=== PATIENT | female | born 1935 | race Caucasian/White ===

== ENCOUNTER 2017-08-22 13:36 | Inpatient (IN) | payer MEDICARE ==
[~2017-08-22] VITALS: Ht 170.2 cm; Wt 70.0 kg
[2017-08-22] MEDS ORDERED: normal saline 1000ml 1,000 ML IV ONE (13:48)
[2017-08-22] MEDS ORDERED: pantoprazole 40 MG vial IV ONE (13:50)
[2017-08-22 14:26] LABS: INR 1.1 INR; PARTIAL THROMBOPLASTIN TIME 28 SECONDS (22-32); PROTHROMBIN TIME 11.3 SECONDS (9.0-12.0)
[2017-08-22 14:33] LABS: ALANINE AMINOTRANSFERASE 15 U/L (12-78); ALBUMIN 3.1 G/DL (3.4-5.0); ALBUMIN/GLOBULIN RATIO 0.7 (1.1-1.5); ALKALINE PHOSPHATASE 75 IU/L (46-116); ANION GAP 8 (8-16); ASPARTATE AMINO TRANSFERASE 14 U/L (10-37); BILIRUBIN,TOTAL 0.4 MG/DL (0.1-1.0); BLOOD UREA NITROGEN 18 MG/DL (7-18); BUN/CREATININE RATIO 20.7 (6.6-38.0); CALCIUM 9.8 MG/DL (8.5-10.1); CHLORIDE 106 MMOL/L (99-107); CREATININE 0.87 MG/DL (0.40-0.90); GLUCOSE 103 MG/DL (70-104); LIPASE 126 U/L (73-393); MAGNESIUM 2.1 MG/DL (1.5-2.4); POTASSIUM 3.9 MMOL/L (3.5-5.1); SODIUM 142 MMOL/L (135-145); TOTAL CARBON DIOXIDE 28.4 MMOL/L (24-32); TOTAL PROTEIN 7.8 G/DL (6.4-8.2); eGFR 62 ML/MIN
[2017-08-22 15:25] LABS: BASOPHILS % (AUTO) 0 % (0-1); EOSINOPHILS # (AUTO) 0.1 X10'3 (0-0.9); EOSINOPHILS % (AUTO) 2.5 % (0-6); HEMATOCRIT 26.2 % (35.0-45.0); HEMOGLOBIN 9.1 g/dl (12.0-16.0); LYMPHOCYTES # (AUTO) 1.4 X10'3 (1.1-4.8); LYMPHOCYTES % (AUTO) 38.9 % (21-51); MEAN CORPUSCULAR HEMOGLOBIN 35.4 PG (27.0-31.0); MEAN CORPUSCULAR HGB CONC 34.7 % (33.0-36.5); MEAN CORPUSCULAR VOLUME 102.1 FL (78-98); MONOCYTES # (AUTO) 0.2 X10'3 (0-0.9); MONOCYTES % (AUTO) 6.3 % (2-12); NEUTROPHILS # (AUTO) 1.9 X10'3 (1.8-7.7); NEUTROPHILS % (AUTO) 52.3 % (42-75); RED BLOOD COUNT 2.57 X10'6 (4.20-5.60); RED CELL DISTRIBUTION WIDTH 14.9 % (11.5-14.5); WHITE BLOOD COUNT 3.5 X10'3 (4.5-11.0)
[2017-08-22 15:36] LABS: PLATELET COUNT 16 X10'3 (140-440)
[2017-08-22 17:53] LABS: CLARITY,URINE SLIGHTLY CLOUDY (Clear); COLOR,URINE STRAW (Yellow); GLUCOSE, URINE NEGATIVE (Neg); KETONES,URINE NEGATIVE (Neg); LEUKOCYTE ESTERASE ,URINE TRACE (Neg); NITRITES, URINE NEGATIVE (Neg); OCCULT BLOOD,URINE NEGATIVE (Neg); PH,URINE 7.5 (4.8-8.0); PROTEIN,URINE NEGATIVE (Neg); UROBILINOGEN,URINE 0.2 E.U/dL (0.2-1.0)
[2017-08-22 17:55] LABS: UA COLLECTION TYPE CLN CATCH MIDSTREAM
[2017-08-22 18:05] LABS: BACTERIA,URINE FEW /HPF (Neg); MUCUS STRANDS NONE SEEN /LPF (Neg); SQUAMOUS EPITHELIAL CELL,UR MODERATE /LPF (FEW); TRANSITIONAL EPI CELLS,URINE MODERATE /HPF; WBC,URINE 0-4 /HPF (0-4)
[2017-08-22 18:06] LABS: AMORPHOUS PHOSPHATES 3+
[2017-08-22] MEDS: diatr meglu/diatrizoate 30ml oral sol.-(3 dose) bottle PO SCH ×4 (18:09→19:45)
[2017-08-22] MEDS ORDERED: mag hydrox/Alum hydrox/simeth 30ml oral suspension PO PRN (18:10)
[2017-08-22] MEDS ORDERED: ondansetron/PF 4mg/2ml inj IV PRN (18:10)
[2017-08-22] MEDS ORDERED: acetaminophen 325mg tablet PO PRN (18:10)
[2017-08-22] MEDS ORDERED: magnesium hydroxide 30ml (MOM) UD suspension PO PRN (18:10)
[2017-08-22] MEDS: normal saline 1000ml 1,000 ML IV SCH (18:35)
[2017-08-22] MEDS: amLODIPine 5mg tablet PO SCH (18:35)
[2017-08-22] MEDS ORDERED: AMLO5TAB21 (19:03)
[2017-08-22] MEDS ORDERED: NAPR220C15 PO (19:04)
[2017-08-22 19:25] LABS: % IRON SATURATION 14 % (11-46); IRON 40 UG/DL (49-151); TOTAL IRON BINDING CAPACITY 285 UG/DL (259-388)
[2017-08-22] MEDS ORDERED: iohexol 300mg/ml 100ml inj. ONE (19:33)
[2017-08-22 19:49] LABS: H PYLORI ANTIBODY NEGATIVE (Neg)
[2017-08-23] VITALS (15 sets, daily range): BP systolic 126–199; BP diastolic 55–78
[2017-08-23] MEDS: normal saline 1000ml 1,000 ML IV SCH (00:47)
[2017-08-23 05:21] LABS: HEMATOCRIT 23.4 % (35.0-45.0); HEMOGLOBIN 8.1 g/dl (12.0-16.0); MEAN CORPUSCULAR HEMOGLOBIN 35.2 PG (27.0-31.0); MEAN CORPUSCULAR HGB CONC 34.7 % (33.0-36.5); MEAN CORPUSCULAR VOLUME 101.5 FL (78-98); MEAN PLATELET VOLUME 8.4 FL (7.4-10.4); WHITE BLOOD COUNT 3.3 X10'3 (4.5-11.0)
[2017-08-23 05:24] LABS: PLATELET COUNT 14 X10'3 (140-440)
[2017-08-23 06:23] LABS: ALANINE AMINOTRANSFERASE 19 U/L (12-78); ALBUMIN 2.7 G/DL (3.4-5.0); ALBUMIN/GLOBULIN RATIO 0.7 (1.1-1.5); ALKALINE PHOSPHATASE 65 IU/L (46-116); ASPARTATE AMINO TRANSFERASE 13 U/L (10-37); BILIRUBIN,DIRECT 0.1 MG/DL (0-0.3); BILIRUBIN,TOTAL 0.4 MG/DL (0.1-1.0); LACTATE DEHYDROGENASE 186 U/L (81-234); TOTAL PROTEIN 6.7 G/DL (6.4-8.2)
[2017-08-23 07:03] LABS: EOSINOPHILS % (MANUAL) 1 % (0-6); LYMPHOCYTES % (MANUAL) 44 % (21-51); MONOCYTES % (MANUAL) 4 % (2-12); NEUTROPHILS % (MANUAL) 51 % (42-75); PLATELET ESTIMATE DECREASED; TOTAL CELLS COUNTED 100
[2017-08-23] MEDS: pantoprazole 40mg Tablet.DR PO SCH ×2 (07:30→20:52)
[2017-08-23] MEDS: amLODIPine 5mg tablet PO SCH (08:00)
[2017-08-23] MEDS ORDERED: normal saline 1000ml 1,000 ML IV SCH (13:50)
[2017-08-23] MEDS ORDERED: fentaNYL/PF 50MCG/1 ML 2ML syringe IV PRN (13:50)
[2017-08-23] MEDS ORDERED: MIDAZolam 5mg/ml 2ml vial IV PRN (13:50)
[2017-08-23] MEDS ORDERED: simethicone 40mg/0.6ml oral drops 30ml MC ONE (13:50)
[2017-08-23] MEDS ORDERED: LIDOcaine Viscous 15ml cup PO ONE (13:50)
[2017-08-23] MEDS ORDERED: midazolam 2 mg/2 ml injection ONE (14:51)
[2017-08-23] MEDS ORDERED: fentaNYL/PF 50MCG/1 ML 2ML syringe ONE (14:51)
[2017-08-23] MEDS ORDERED: LIDOcaine Viscous 15ml cup ONE (14:58)
[2017-08-23] MEDS ORDERED: amLODIPine 5mg tablet PO ONE ×2 (19:35)
[2017-08-24] VITALS (13 sets, daily range): BP systolic 118–167; BP diastolic 46–76
[2017-08-24] MEDS: pantoprazole 40mg Tablet.DR PO SCH ×3 (07:30→20:18)
[2017-08-24] MEDS ORDERED: amLODIPine 5mg tablet PO SCH ×2 (08:00→21:00)
[2017-08-24 08:33] LABS: BASOPHILS % (AUTO) 0.4 % (0-1); EOSINOPHILS # (AUTO) 0.1 X10'3 (0-0.9); EOSINOPHILS % (AUTO) 3.4 % (0-6); HEMATOCRIT 23.5 % (35.0-45.0); HEMOGLOBIN 8.1 g/dl (12.0-16.0); LYMPHOCYTES # (AUTO) 1.2 X10'3 (1.1-4.8); LYMPHOCYTES % (AUTO) 45.7 % (21-51); MEAN CORPUSCULAR HEMOGLOBIN 35.3 PG (27.0-31.0); MEAN CORPUSCULAR HGB CONC 34.3 % (33.0-36.5); MEAN CORPUSCULAR VOLUME 102.9 FL (78-98); MEAN PLATELET VOLUME 7.8 FL (7.4-10.4); MONOCYTES # (AUTO) 0.2 X10'3 (0-0.9); MONOCYTES % (AUTO) 6.9 % (2-12); NEUTROPHILS # (AUTO) 1.1 X10'3 (1.8-7.7); NEUTROPHILS % (AUTO) 43.6 % (42-75); RED BLOOD COUNT 2.28 X10'6 (4.20-5.60); RED CELL DISTRIBUTION WIDTH 15.1 % (11.5-14.5); WHITE BLOOD COUNT 2.6 X10'3 (4.5-11.0)
[2017-08-24 08:45] LABS: INR 1.1 INR; PROTHROMBIN TIME 11.4 SECONDS (9.0-12.0)
[2017-08-24 08:54] LABS: PLATELET COUNT 29 X10'3 (140-440)
[2017-08-24 08:59] LABS: TOTAL CELLS COUNTED 100
[2017-08-24 09:00] LABS: PLATELET ESTIMATE DECREASED
[2017-08-24] MEDS: metroNIDAZOLE-Flagyl 500mg/NS 100 ML IV SCH (19:37)
[2017-08-24] MEDS ORDERED: vancomycin/NS 1 GM ADD-VANTAGE 250 ML X 1 DOSE IV ONE (20:00)
[2017-08-24] MEDS: cefepime 1GM/NS ADD-VANTAGE 100 ML IV SCH (20:15)
[2017-08-24] MEDS: amLODIPine 2.5mg tablet PO SCH (20:21)
[2017-08-24] MEDS ORDERED: vancomycin/NS 500MG ADD-VANT 100 ML IV ONE (21:30)
[2017-08-25] VITALS: BP 149/60
[2017-08-25] MEDS: normal saline 1000ml 1,000 ML IV SCH ×2 (00:54→06:09)
[2017-08-25] MEDS: metroNIDAZOLE-Flagyl 500mg/NS 100 ML IV SCH ×2 (00:54→08:00)
[2017-08-25 08:00] VITALS: BP 129/54
[2017-08-25] MEDS: pantoprazole 40mg Tablet.DR PO SCH ×3 (08:56→20:16)
[2017-08-25] MEDS: cefepime 1GM/NS ADD-VANTAGE 100 ML IV SCH ×2 (08:57→20:15)
[2017-08-25] MEDS ORDERED: vancomycin/NS 1 GM ADD-VANTAGE 250 ML IV SCH (10:00)
[2017-08-25 10:56] LABS: CREATININE 0.84 MG/DL (0.40-0.90); eGFR 65 ML/MIN
[2017-08-25 11:00] VITALS: BP_SYST 129; BP_SYST 157; BP_DIAS 54; BP_DIAS 58
[2017-08-25 11:25] VITALS: BP_SYST 129; BP_SYST 132; BP_SYST 137; BP_DIAS 54; BP_DIAS 55
[2017-08-25 12:55] LABS: BASOPHILS % (AUTO) 0.5 % (0-1); EOSINOPHILS # (AUTO) 0.1 X10'3 (0-0.9); EOSINOPHILS % (AUTO) 2.6 % (0-6); HEMATOCRIT 22.3 % (35.0-45.0); HEMOGLOBIN 7.8 g/dl (12.0-16.0); LYMPHOCYTES # (AUTO) 1.3 X10'3 (1.1-4.8); MEAN CORPUSCULAR HEMOGLOBIN 35.5 PG (27.0-31.0); MEAN CORPUSCULAR HGB CONC 35.2 % (33.0-36.5); MEAN PLATELET VOLUME 7.3 FL (7.4-10.4); MONOCYTES # (AUTO) 0.2 X10'3 (0-0.9); MONOCYTES % (AUTO) 6.5 % (2-12); NEUTROPHILS # (AUTO) 1.3 X10'3 (1.8-7.7); NEUTROPHILS % (AUTO) 45.4 % (42-75); PLATELET COUNT 56 X10'3 (140-440); RED BLOOD COUNT 2.21 X10'6 (4.20-5.60); RED CELL DISTRIBUTION WIDTH 15.1 % (11.5-14.5)
[2017-08-25 13:09] LABS: ALANINE AMINOTRANSFERASE 12 U/L (12-78); ALBUMIN 2.6 G/DL (3.4-5.0); ALBUMIN/GLOBULIN RATIO 0.6 (1.1-1.5); ALKALINE PHOSPHATASE 71 IU/L (46-116); ANION GAP 9 (8-16); ASPARTATE AMINO TRANSFERASE 14 U/L (10-37); BILIRUBIN,TOTAL 0.4 MG/DL (0.1-1.0); BLOOD UREA NITROGEN 17 MG/DL (7-18); BUN/CREATININE RATIO 21.3 (6.6-38.0); CALCIUM 9.6 MG/DL (8.5-10.1); CHLORIDE 106 MMOL/L (99-107); GLUCOSE 95 MG/DL (70-104); POTASSIUM 4.1 MMOL/L (3.5-5.1); SODIUM 140 MMOL/L (135-145); TOTAL CARBON DIOXIDE 25.4 MMOL/L (24-32); eGFR 68 ML/MIN
[2017-08-25 15:57] LABS: TOTAL CELLS COUNTED 100
[2017-08-25 15:58] LABS: PLATELET ESTIMATE DECREASED
[2017-08-25] MEDS: metroNIDAZOLE 500mg tablet PO SCH (16:34)
[2017-08-25] MEDS: lactobacillus rhamnosus 10,000 MMU CELLS/CAPSULE PO SCH (17:40)
[2017-08-25 20:00] VITALS: BP_SYST 132; BP_SYST 150; BP_SYST 159; BP_DIAS 60; BP_DIAS 62; BP_DIAS 65
[2017-08-25] MEDS: amLODIPine 2.5mg tablet PO SCH (20:16)
[2017-08-25] MEDS: vancomycin/NS 1 GM ADD-VANTAGE 250 ML IV SCH (22:48)
[2017-08-26] VITALS: BP 119/61
[2017-08-26] MEDS: metroNIDAZOLE 500mg tablet PO SCH ×4 (00:08→23:02)
[2017-08-26] MEDS: normal saline 1000ml 1,000 ML IV SCH ×2 (02:13→22:09)
[2017-08-26 05:33] LABS: HEMATOCRIT 22.7 % (35.0-45.0); HEMOGLOBIN 7.9 g/dl (12.0-16.0); MEAN CORPUSCULAR HEMOGLOBIN 35.6 PG (27.0-31.0); MEAN CORPUSCULAR HGB CONC 34.8 % (33.0-36.5); MEAN CORPUSCULAR VOLUME 102.2 FL (78-98); MEAN PLATELET VOLUME 7.5 FL (7.4-10.4); PLATELET COUNT 51 X10'3 (140-440); RED BLOOD COUNT 2.22 X10'6 (4.20-5.60); RED CELL DISTRIBUTION WIDTH 14.6 % (11.5-14.5); WHITE BLOOD COUNT 2.9 X10'3 (4.5-11.0)
[2017-08-26 06:21] LABS: ALANINE AMINOTRANSFERASE 16 U/L (12-78); ALBUMIN 2.5 G/DL (3.4-5.0); ALBUMIN/GLOBULIN RATIO 0.6 (1.1-1.5); ALKALINE PHOSPHATASE 65 IU/L (46-116); ANION GAP 8 (8-16); ASPARTATE AMINO TRANSFERASE 11 U/L (10-37); BILIRUBIN,TOTAL 0.4 MG/DL (0.1-1.0); BLOOD UREA NITROGEN 19 MG/DL (7-18); BUN/CREATININE RATIO 20.2 (6.6-38.0); CALCIUM 9.5 MG/DL (8.5-10.1); CHLORIDE 109 MMOL/L (99-107); CREATININE 0.94 MG/DL (0.40-0.90); GLUCOSE 105 MG/DL (70-104); POTASSIUM 4.4 MMOL/L (3.5-5.1); SODIUM 142 MMOL/L (135-145); TOTAL CARBON DIOXIDE 24.9 MMOL/L (24-32); TOTAL PROTEIN 6.7 G/DL (6.4-8.2); eGFR 57 ML/MIN
[2017-08-26 06:41] LABS: ANISOCYTOSIS 1+; PLATELET ESTIMATE DECREASED; TOTAL CELLS COUNTED 100
[2017-08-26 08:00] VITALS: BP_SYST 116; BP_SYST 129; BP_SYST 133; BP_DIAS 53; BP_DIAS 56; BP_DIAS 60
[2017-08-26] MEDS: cyanocobalamin 500mcg tablet PO SCH (08:02)
[2017-08-26] MEDS: pantoprazole 40mg Tablet.DR PO SCH ×2 (08:02→22:05)
[2017-08-26] MEDS: lactobacillus rhamnosus 10,000 MMU CELLS/CAPSULE PO SCH ×2 (08:02→20:00)
[2017-08-26] MEDS: cefepime 1GM/NS ADD-VANTAGE 100 ML IV SCH ×2 (08:03→22:06)
[2017-08-26 11:00] VITALS: BP 148/69
[2017-08-26 14:49] LABS: OCCULT BLOOD STOOL POSITIVE (Neg)
[2017-08-26 19:00] VITALS: BP 140/63
[2017-08-26 20:00] VITALS: BP_SYST 140; BP_SYST 146; BP_SYST 155; BP_DIAS 61; BP_DIAS 63; BP_DIAS 65
[2017-08-26] MEDS: amLODIPine 2.5mg tablet PO SCH (22:06)
[2017-08-26] MEDS: vancomycin/NS 1 GM ADD-VANTAGE 250 ML IV SCH (23:02)
[2017-08-27] VITALS: BP 124/63
[2017-08-27 05:42] LABS: BASOPHILS % (AUTO) 0.4 % (0-1); EOSINOPHILS # (AUTO) 0.1 X10'3 (0-0.9); EOSINOPHILS % (AUTO) 3.3 % (0-6); HEMATOCRIT 22.3 % (35.0-45.0); HEMOGLOBIN 7.9 g/dl (12.0-16.0); LYMPHOCYTES # (AUTO) 1.6 X10'3 (1.1-4.8); LYMPHOCYTES % (AUTO) 47.4 % (21-51); MEAN CORPUSCULAR HEMOGLOBIN 35.7 PG (27.0-31.0); MEAN CORPUSCULAR HGB CONC 35.3 % (33.0-36.5); MEAN CORPUSCULAR VOLUME 101.1 FL (78-98); MEAN PLATELET VOLUME 7.5 FL (7.4-10.4); MONOCYTES # (AUTO) 0.2 X10'3 (0-0.9); MONOCYTES % (AUTO) 6.5 % (2-12); NEUTROPHILS # (AUTO) 1.4 X10'3 (1.8-7.7); NEUTROPHILS % (AUTO) 42.4 % (42-75); RED BLOOD COUNT 2.21 X10'6 (4.20-5.60); RED CELL DISTRIBUTION WIDTH 14.4 % (11.5-14.5); WHITE BLOOD COUNT 3.4 X10'3 (4.5-11.0)
[2017-08-27 05:46] LABS: PLATELET COUNT 44 X10'3 (140-440)
[2017-08-27 06:27] LABS: ALBUMIN 2.4 G/DL (3.4-5.0); ALBUMIN/GLOBULIN RATIO 0.5 (1.1-1.5); ALKALINE PHOSPHATASE 64 IU/L (46-116); ANION GAP 8 (8-16); ASPARTATE AMINO TRANSFERASE 16 U/L (10-37); BILIRUBIN,TOTAL 0.4 MG/DL (0.1-1.0); BLOOD UREA NITROGEN 21 MG/DL (7-18); BUN/CREATININE RATIO 24.1 (6.6-38.0); CALCIUM 9.7 MG/DL (8.5-10.1); CHLORIDE 110 MMOL/L (99-107); CREATININE 0.87 MG/DL (0.40-0.90); GLUCOSE 102 MG/DL (70-104); POTASSIUM 4.4 MMOL/L (3.5-5.1); SODIUM 144 MMOL/L (135-145); TOTAL CARBON DIOXIDE 26.3 MMOL/L (24-32); TOTAL PROTEIN 6.8 G/DL (6.4-8.2); eGFR 62 ML/MIN
[2017-08-27 06:35] LABS: ALANINE AMINOTRANSFERASE 11 U/L (12-78)
[2017-08-27 08:00] VITALS: BP_SYST 128; BP_SYST 129; BP_SYST 130; BP_DIAS 64; BP_DIAS 81; BP_DIAS 84
[2017-08-27] MEDS: lactobacillus rhamnosus 10,000 MMU CELLS/CAPSULE PO SCH ×2 (08:58→20:07)
[2017-08-27] MEDS: pantoprazole 40mg Tablet.DR PO SCH ×2 (08:58→20:07)
[2017-08-27] MEDS: cyanocobalamin 500mcg tablet PO SCH (08:58)
[2017-08-27] MEDS: metroNIDAZOLE 500mg tablet PO SCH ×2 (08:58→16:07)
[2017-08-27] MEDS: cefepime 1GM/NS ADD-VANTAGE 100 ML IV SCH ×2 (08:58→20:07)
[2017-08-27 11:00] VITALS: BP 123/56
[2017-08-27] MEDS ORDERED: vancomycin inj 500 MG in normal saline 100ml IV soln 100 ML IV SCH (11:00)
[2017-08-27 19:30] VITALS: BP_SYST 141; BP_SYST 154; BP_SYST 163; BP_DIAS 63; BP_DIAS 69; BP_DIAS 75
[2017-08-27] MEDS: amLODIPine 2.5mg tablet PO SCH (21:34)
[2017-08-27] MEDS: normal saline 1000ml 1,000 ML IV SCH (21:34)
[2017-08-27] MEDS: vancomycin/NS 1 GM ADD-VANTAGE 250 ML IV SCH (23:11)
[2017-08-28] VITALS: BP 118/57
[2017-08-28] MEDS: metroNIDAZOLE 500mg tablet PO SCH ×4 (00:49→23:48)
[2017-08-28 07:27] VITALS: BP 121/59
[2017-08-28 07:30] VITALS: BP_SYST 121; BP_SYST 124; BP_SYST 125; BP_DIAS 57; BP_DIAS 59; BP_DIAS 64
[2017-08-28] MEDS: cefepime 1GM/NS ADD-VANTAGE 100 ML IV SCH ×2 (09:24→21:08)
[2017-08-28] MEDS: pantoprazole 40mg Tablet.DR PO SCH ×2 (09:25→21:09)
[2017-08-28] MEDS: cyanocobalamin 500mcg tablet PO SCH (09:25)
[2017-08-28] MEDS: lactobacillus rhamnosus 10,000 MMU CELLS/CAPSULE PO SCH ×2 (09:25→21:09)
[2017-08-28 09:54] LABS: HEMATOCRIT 22.3 % (35.0-45.0); HEMOGLOBIN 7.8 g/dl (12.0-16.0); MEAN CORPUSCULAR HEMOGLOBIN 35.6 PG (27.0-31.0); MEAN CORPUSCULAR HGB CONC 35.1 % (33.0-36.5); MEAN CORPUSCULAR VOLUME 101.7 FL (78-98); MEAN PLATELET VOLUME 6.4 FL (7.4-10.4); RED BLOOD COUNT 2.19 X10'6 (4.20-5.60); RED CELL DISTRIBUTION WIDTH 14.8 % (11.5-14.5); WHITE BLOOD COUNT 2.7 X10'3 (4.5-11.0)
[2017-08-28 10:00] LABS: PLATELET COUNT 32 X10'3 (140-440)
[2017-08-28 10:10] LABS: ANISOCYTOSIS 1+; PLATELET ESTIMATE DECREASED; TOTAL CELLS COUNTED 100
[2017-08-28 10:15] LABS: ALANINE AMINOTRANSFERASE 24 U/L (12-78); ALBUMIN 2.5 G/DL (3.4-5.0); ALBUMIN/GLOBULIN RATIO 0.6 (1.1-1.5); ALKALINE PHOSPHATASE 65 IU/L (46-116); ANION GAP 8 (8-16); ASPARTATE AMINO TRANSFERASE 25 U/L (10-37); BILIRUBIN,TOTAL 0.3 MG/DL (0.1-1.0); BLOOD UREA NITROGEN 21 MG/DL (7-18); CALCIUM 9.5 MG/DL (8.5-10.1); CHLORIDE 106 MMOL/L (99-107); GLUCOSE 96 MG/DL (70-104); POTASSIUM 3.8 MMOL/L (3.5-5.1); SODIUM 140 MMOL/L (135-145); TOTAL CARBON DIOXIDE 26.3 MMOL/L (24-32); TOTAL PROTEIN 6.8 G/DL (6.4-8.2); eGFR 80 ML/MIN
[2017-08-28 11:00] VITALS: BP 120/62
[2017-08-28] MEDS: normal saline 1000ml 1,000 ML IV SCH (16:30)
[2017-08-28 18:50] VITALS: BP 133/58
[2017-08-28] MEDS: amLODIPine 2.5mg tablet PO SCH (21:09)
[2017-08-28] MEDS ORDERED: VANCOMYCIN LEVEL IV ONE (22:30)
[2017-08-28] MEDS ORDERED: VANCOMYCIN LEVEL IV NR (22:30)
[2017-08-28] MEDS: vancomycin/NS 1 GM ADD-VANTAGE 250 ML IV SCH (23:48)
[2017-08-29] VITALS (9 sets, daily range): BP systolic 120–148; BP diastolic 50–70
[2017-08-29 07:06] LABS: ALBUMIN 2.3 G/DL (3.4-5.0); ANION GAP 7 (8-16); BLOOD UREA NITROGEN 20 MG/DL (7-18); BUN/CREATININE RATIO 26.7 (6.6-38.0); CALCIUM 9.5 MG/DL (8.5-10.1); CHLORIDE 110 MMOL/L (99-107); CREATININE 0.75 MG/DL (0.40-0.90); GLUCOSE 98 MG/DL (70-104); POTASSIUM 4.1 MMOL/L (3.5-5.1); SODIUM 144 MMOL/L (135-145); TOTAL CARBON DIOXIDE 26.7 MMOL/L (24-32); eGFR 74 ML/MIN
[2017-08-29] MEDS: cyanocobalamin 500mcg tablet PO SCH (09:23)
[2017-08-29] MEDS: lactobacillus rhamnosus 10,000 MMU CELLS/CAPSULE PO SCH ×2 (09:23→20:43)
[2017-08-29] MEDS: metroNIDAZOLE 500mg tablet PO SCH ×2 (09:23→16:13)
[2017-08-29] MEDS: cefepime 1GM/NS ADD-VANTAGE 100 ML IV SCH (09:23)
[2017-08-29] MEDS: pantoprazole 40mg Tablet.DR PO SCH ×2 (09:24→20:43)
[2017-08-29] MEDS: normal saline 1000ml 1,000 ML IV SCH ×2 (10:09→17:51)
[2017-08-29 12:49] LABS: BASOPHILS % (AUTO) 0.6 % (0-1); EOSINOPHILS # (AUTO) 0.1 X10'3 (0-0.9); EOSINOPHILS % (AUTO) 2.9 % (0-6); HEMATOCRIT 22.1 % (35.0-45.0); HEMOGLOBIN 7.8 g/dl (12.0-16.0); LYMPHOCYTES # (AUTO) 1.2 X10'3 (1.1-4.8); LYMPHOCYTES % (AUTO) 44.6 % (21-51); MEAN CORPUSCULAR HEMOGLOBIN 35.5 PG (27.0-31.0); MEAN CORPUSCULAR HGB CONC 35.1 % (33.0-36.5); MEAN CORPUSCULAR VOLUME 101.2 FL (78-98); MEAN PLATELET VOLUME 8.4 FL (7.4-10.4); MONOCYTES # (AUTO) 0.2 X10'3 (0-0.9); MONOCYTES % (AUTO) 6.1 % (2-12); NEUTROPHILS # (AUTO) 1.3 X10'3 (1.8-7.7); NEUTROPHILS % (AUTO) 45.8 % (42-75); RED BLOOD COUNT 2.19 X10'6 (4.20-5.60); RED CELL DISTRIBUTION WIDTH 15.1 % (11.5-14.5); WHITE BLOOD COUNT 2.8 X10'3 (4.5-11.0)
[2017-08-29 12:53] LABS: ALANINE AMINOTRANSFERASE 23 U/L (12-78); ALBUMIN 2.6 G/DL (3.4-5.0); ALBUMIN/GLOBULIN RATIO 0.6 (1.1-1.5); ALKALINE PHOSPHATASE 67 IU/L (46-116); ANION GAP 7 (8-16); ASPARTATE AMINO TRANSFERASE 21 U/L (10-37); BILIRUBIN,TOTAL 0.3 MG/DL (0.1-1.0); BLOOD UREA NITROGEN 17 MG/DL (7-18); BUN/CREATININE RATIO 22.7 (6.6-38.0); CALCIUM 9.8 MG/DL (8.5-10.1); CHLORIDE 108 MMOL/L (99-107); CREATININE 0.75 MG/DL (0.40-0.90); GLUCOSE 123 MG/DL (70-104); POTASSIUM 3.8 MMOL/L (3.5-5.1); SODIUM 142 MMOL/L (135-145); TOTAL CARBON DIOXIDE 27.1 MMOL/L (24-32); TOTAL PROTEIN 6.9 G/DL (6.4-8.2); eGFR 74 ML/MIN
[2017-08-29 13:01] LABS: PLATELET COUNT 22 X10'3 (140-440)
[2017-08-29 13:09] LABS: TOTAL CELLS COUNTED 100
[2017-08-29 13:10] LABS: ANISOCYTOSIS FEW
[2017-08-29 15:35] LABS: PLATELET ESTIMATE DECREASED
[2017-08-29] MEDS ORDERED: furosemide 40mg/4ml inj IV ONE (16:40)
[2017-08-29] MEDS: amLODIPine 2.5mg tablet PO SCH (20:43)
[2017-08-30] VITALS (8 sets, daily range): BP systolic 115–149; BP diastolic 60–91
[2017-08-30] MEDS: metroNIDAZOLE 500mg tablet PO SCH ×2 (02:20→08:16)
[2017-08-30 06:15] LABS: ALBUMIN 2.9 G/DL (3.4-5.0); ANION GAP 10 (8-16); BLOOD UREA NITROGEN 17 MG/DL (7-18); BUN/CREATININE RATIO 20.7 (6.6-38.0); CALCIUM 9.8 MG/DL (8.5-10.1); CHLORIDE 107 MMOL/L (99-107); CREATININE 0.82 MG/DL (0.40-0.90); GLUCOSE 104 MG/DL (70-104); POTASSIUM 3.6 MMOL/L (3.5-5.1); SODIUM 144 MMOL/L (135-145); TOTAL CARBON DIOXIDE 26.7 MMOL/L (24-32); eGFR 66 ML/MIN
[2017-08-30 07:47] LABS: HEMOGLOBIN 9.8 g/dl (12.0-16.0); MEAN CORPUSCULAR HEMOGLOBIN 34.6 PG (27.0-31.0); MEAN CORPUSCULAR HGB CONC 34.9 % (33.0-36.5); MEAN CORPUSCULAR VOLUME 99.3 FL (78-98); MEAN PLATELET VOLUME 7.7 FL (7.4-10.4); PLATELET COUNT 96 X10'3 (140-440); RED BLOOD COUNT 2.82 X10'6 (4.20-5.60); RED CELL DISTRIBUTION WIDTH 16.3 % (11.5-14.5); WHITE BLOOD COUNT 2.5 X10'3 (4.5-11.0)
[2017-08-30] MEDS: lactobacillus rhamnosus 10,000 MMU CELLS/CAPSULE PO SCH (08:15)
[2017-08-30] MEDS: cyanocobalamin 500mcg tablet PO SCH (08:16)
[2017-08-30] MEDS: pantoprazole 40mg Tablet.DR PO SCH (08:16)
[2017-08-30 09:50] LABS: PLATELET ESTIMATE DECREASED; TOTAL CELLS COUNTED 100
[2017-08-30 09:52] LABS: ANISOCYTOSIS 1+; POLYCHROMASIA FEW
[2017-08-30] MEDS ORDERED: CYA500T PO (13:22)
[2017-08-30] MEDS ORDERED: SULF1TAB49 PO (13:22)
[2017-09-01] MEDS ORDERED: VANCOMYCIN LEVEL IV NR (22:30)
== END 2017-08-30 14:54 | disposition home or self-care (01) | DRG 809 ==
LOC: ER 13:37 → ED HOLD 18:09 → SUR 3N 21:39
PROVIDERS: ADMIT Internal Medicine; ATTEND Family Medicine
PROC: BW211ZZ Computerized Tomography (CT Scan) of Abdomen and Pelvis using Low Osmolar Contrast (ICD-10-PCS; 2017-08-22)
PROC: 30233R1 Transfusion of Nonautologous Platelets into Peripheral Vein, Percutaneous Approach (ICD-10-PCS; 2017-08-23)
PROC: 0DJ08ZZ Inspection of Upper Intestinal Tract, Via Natural or Artificial Opening Endoscopic (ICD-10-PCS; 2017-08-23)
PROC: 0J9H3ZX Drainage of Left Lower Arm Subcutaneous Tissue and Fascia, Percutaneous Approach, Diagnostic (ICD-10-PCS; 2017-08-24)
PROC: 30233N1 Transfusion of Nonautologous Red Blood Cells into Peripheral Vein, Percutaneous Approach (ICD-10-PCS; principal; 2017-08-30)
DX: D61.818 Other pancytopenia (principal); L02.414 Cutaneous abscess of left upper limb; D51.0 Vitamin B12 deficiency anemia due to intrinsic factor deficiency; D75.89 Other specified diseases of blood and blood-forming organs; K22.2 Esophageal obstruction; L03.114 Cellulitis of left upper limb; K25.9 Gastric ulcer, unspecified as acute or chronic, without hemorrhage or perforation; B95.62 Methicillin resistant Staphylococcus aureus infection as the cause of diseases classified elsewhere; D53.9 Nutritional anemia, unspecified; K29.60 Other gastritis without bleeding; K44.9 Diaphragmatic hernia without obstruction or gangrene; K80.20 Calculus of gallbladder without cholecystitis without obstruction; M19.90 Unspecified osteoarthritis, unspecified site; N20.0 Calculus of kidney; I10 Essential (primary) hypertension; Z90.49 Acquired absence of other specified parts of digestive tract; Z90.710 Acquired absence of both cervix and uterus; Z87.442 Personal history of urinary calculi
CPT/HCPCS: 10030; 36415; 71045; 74177; 76700; 76881; 80048; 80053; 80076; 80202; 81001; 82272; 82565; 82607; 82746; 83540; 83550; 83615; 83690; 83735; 84484; 85007; 85025; 85027; 85610; 85730; 86644; 86677; 86870; 86885; 86900; 86901; 86902; 86905; 86922; 86945; 87070; 87077; 87088; 87186; 93005; 96361; 96374; 99285; A4620; A6212; C9113; G0500; J0692; J1940; J2250; J3010; J3370; J3490; J7030; P9016; P9035; Q9963; Q9967